=== PATIENT | female | born 1975 | race Caucasian/White ===

== ENCOUNTER 2021-11-23 14:13 | Emergency (ER) | payer MEDICARE ==
[2021-11-23 16:40] LABS: HEMOGLOBIN 15.1 gm/dl (12.3-15.3); RED BLOOD COUNT 4.41 M/UL (4.00-5.10); WHITE BLOOD COUNT 5.9 K/UL (4.5-11.0)
[2021-11-23 17:02] LABS: BUN/CREATININE RATIO 17 (0-10)
== END 2021-11-23 18:57 | disposition home or self-care (01) ==
LOC: ER1 14:13
PROVIDERS: Physician Assistant
DX: R53.1 Weakness (principal); R63.4 Abnormal weight loss; I10 Essential (primary) hypertension
CPT/HCPCS: 71045; 80053; 81001; 84439; 84443; 85025; 85652; 93005; 99285